=== PATIENT | female | born 2000 | race Hispanic/Latino ===

== ENCOUNTER 2022-12-26 12:43 | Inpatient (IN) | payer MEDICAID ==
[~2022-12-26] VITALS: Ht 152.4 cm; Wt 74.8 kg
[2022-12-26 12:55] VITALS: O2SAT 99
[2022-12-26] MEDS ORDERED: LACTATED RINGERS 500 ML 500 ML IV PRN (16:00)
[2022-12-26] MEDS ORDERED: NALOXONE HCL 0.4 MG/1 ML ML IV PRN (16:00)
[2022-12-26] MEDS ORDERED: LACTATED RINGERS 1000ML 1,000 ML IV PRN (16:00)
[2022-12-26] MEDS ORDERED: ROPIVACAINE 0.2% 100ML VIAL 100 ML EP SCH (16:00)
[2022-12-26] MEDS ORDERED: PROMETHAZINE HCL 25 MG/ML 1ML AMPULE IM PRN (16:00)
[2022-12-26] MEDS ORDERED: MEPERIDINE-PF 50 MG/ML SYG IM PRN (16:00)
[2022-12-26] MEDS ORDERED: EPHEDRINE SULFATE 50 MG/ML AMPULE IVP PRN (16:00)
[2022-12-26] MEDS ORDERED: OXYTOCIN-LR 30 UNITS/500ML 500 ML IV SCH (16:00)
[2022-12-26 16:10] LABS: HEMATOCRIT 38.5 % (36-48); MEAN CORPUSCULAR HEMOGLOBIN 30.9 pg (27.0-33.0); MEAN CORPUSCULAR VOLUME 90.8 fL (79-99); RED BLOOD CELL COUNT(AUTO) 4.24 MIL/uL (4.00-5.50); RED CELL DISTRIBUTION WIDTH 13.1 % (11.0-15.5); WHITE BLOOD COUNT (AUTO) 9.6 K/uL (4.8-10.8)
[2022-12-26 16:13] LABS: APPEARANCE,URINE CLEAR (CLEAR); BILIRUBIN,URINE NEGATIVE (NEGATIVE); COLOR,URINE LIGHT-YELLOW (YELLOW); GLUCOSE, URINE (UA) NEGATIVE (NEGATIVE); KETONES,URINE NEGATIVE (NEGATIVE); LEUKOCYTE ESTERASE ,URINE NEGATIVE Leu/uL (NEGATIVE); NITRATE,URINE NEGATIVE (NEGATIVE); OCCULT BLOOD,URINE NEGATIVE (NEGATIVE); PH,URINE 6.5 (5.0-8.0); PROTEIN,URINE NEGATIVE (NEGATIVE); UROBILINOGEN,URINE 0.2 mg/dL (0.2-1.0)
[2022-12-26 16:14] LABS: ADD UA MICROSCOPIC YES
[2022-12-26 16:18] LABS: BACTERIA,URINE RARE /HPF (None Seen); RBC,URINE 0-1 /HPF (0-1); SQUAMOUS EPITHELIAL CELL,UR RARE /HPF (0-2)
[2022-12-26 17:00] VITALS: RESP 16
[2022-12-26 17:39] LABS: HIV 1&2 ANTIBODY Non-Reactive (Negative); HIV-1 p24 Antigen Non-Reactive (Negative)
[2022-12-26 20:18] VITALS: RESP 16
[2022-12-27 00:06] VITALS: BP 148/86; PULSE 95; RESP 18
[2022-12-27] MEDS ORDERED: OXYTOCIN-LR 30 UNITS/500ML 500 ML IV SCH ×2 (05:00→11:30)
[2022-12-27 06:10] VITALS: BP 132/97; PULSE 112; RESP 18
[2022-12-27 11:00] LABS: RAPID PLASMA REAGIN NONREACTIVE (NONREACTIVE)
[2022-12-27] MEDS ORDERED: LIDOCAINE HCL 1% 20 ML VIAL ONE (11:07)
[2022-12-27] MEDS ORDERED: MISOPROSTOL 200 MCG TABLET ONE (11:17)
[2022-12-27] MEDS ORDERED: METHYLERGONOVINE MALEATE 0.2 MG/1 ML ML ONE (11:18)
[2022-12-27] MEDS ORDERED: BENZOCAINE/LANOLIN/ALOE VERA 60 ML AEROSOL TP PRN (11:30)
[2022-12-27] MEDS ORDERED: WITCH HAZEL 1 PAD TP PRN (11:30)
[2022-12-27] MEDS ORDERED: METHYLERGONOVINE MALEATE 0.2 MG/1 ML ML IM SCH (11:30)
[2022-12-27] MEDS ORDERED: ACETAMINOPHEN WITH CODEINE 1 TAB TAB PO PRN (11:30)
[2022-12-27] MEDS ORDERED: ACETAMINOPHEN 325 MG TAB PO PRN (11:30)
[2022-12-27] MEDS ORDERED: MEASLES/MUMPS/RUBELLA VACCINE, LIVE 0.5 ML/VIAL SQ PRN (11:30)
[2022-12-27] MEDS ORDERED: DIPH,PERTUSS(ACELL),TET VAC/PF 0.5 ML VIAL IM PRN (11:30)
[2022-12-27] MEDS ORDERED: LANOLIN 30GM OINTMENT TP PRN (11:30)
[2022-12-27] MEDS: IBUPROFEN 600 MG TABLET PO PRN (13:44)
[2022-12-27] MEDS ORDERED: FLU VACC QS2023-24(6MOS UP)/PF 60 MCG/0.5 ML IM ONE (14:00)
[2022-12-27 14:09] VITALS: BP 145/96; PULSE 105; RESP 18
[2022-12-27 16:21] VITALS: BP 135/95; PULSE 94; RESP 18
[2022-12-27 20:20] VITALS: BP 127/87; PULSE 106; RESP 18
[2022-12-27] MEDS: DOCUSATE SODIUM 100 MG CAP PO SCH (21:04)
[2022-12-27 23:20] VITALS: BP 127/97; PULSE 101; RESP 18
[2022-12-28] MEDS: IBUPROFEN 600 MG TABLET PO PRN ×2 (04:03→13:21)
[2022-12-28 04:44] VITALS: BP 140/89; PULSE 87; RESP 18
[2022-12-28 06:50] LABS: HEMATOCRIT 32.1 % (36-48); MEAN CORPUSCULAR HEMOGLOBIN 31.4 pg (27.0-33.0); MEAN CORPUSCULAR VOLUME 92.5 fL (79-99); RED BLOOD CELL COUNT(AUTO) 3.47 MIL/uL (4.00-5.50); RED CELL DISTRIBUTION WIDTH 13.2 % (11.0-15.5); WHITE BLOOD COUNT (AUTO) 9.9 K/uL (4.8-10.8)
[2022-12-28 07:27] VITALS: BP 126/85; PULSE 82; RESP 18
[2022-12-28] MEDS: DOCUSATE SODIUM 100 MG CAP PO SCH (08:27)
[2022-12-28 11:44] VITALS: BP 120/83; PULSE 91; RESP 18
== END 2022-12-28 14:25 | disposition home or self-care (01) | DRG 560 ==
LOC: EDH 12:43 → LDH 12:44 → EDH 12:57 → WSH 12-27 13:32
PROVIDERS: ADMIT Obstetrics & Gynecology; ATTEND Obstetrics & Gynecology
PROC: 10E0XZZ Delivery of Products of Conception, External Approach (ICD-10-PCS; principal; 2022-12-27)
PROC: 0UQMXZZ Repair Vulva, External Approach (ICD-10-PCS; 2022-12-27)
PROC: 3E0R3BZ Introduction of Anesthetic Agent into Spinal Canal, Percutaneous Approach (ICD-10-PCS; 2022-12-27)
PROC: 00HU33Z Insertion of Infusion Device into Spinal Canal, Percutaneous Approach (ICD-10-PCS; 2022-12-27)
DX: O69.81X0 Labor and delivery complicated by cord around neck, without compression, not applicable or unspecified (principal); Z37.0 Single live birth; O14.04 Mild to moderate pre-eclampsia, complicating childbirth; O48.0 Post-term pregnancy; Z3A.40 40 weeks gestation of pregnancy; O70.0 First degree perineal laceration during delivery
CPT/HCPCS: 36415; 81001; 85027; 86592; 86701; 86850; 86900; 86901; 87340; 87390; 90715; A4314; G0378; J2210; J2795; Q2035; Q2038